=== PATIENT | male | born 1955 | race Caucasian/White ===

== ENCOUNTER 2021-11-23 05:28 | Emergency (ER) | payer OTHER ==
[2021-11-23] MEDS ORDERED: Diltiazem 125 MG/25 ML ONE (05:42)
[2021-11-23 06:21] LABS: #Basophils 0.1 10x3/uL (0.0-0.2); #Eosinphils 0.2 10x3/uL (0.0-0.5); #Monocytes 0.5 10x3/uL (0.0-1.1); #Neutrophils 10.8 10x3/uL (1.5-8.4); %Basophils 0.6 % (0.0-2.0); %Eosinophils 1.4 % (0.0-6.0); %Lymphocytes 6.9 % (18.0-47.0); %Monocytes 3.9 % (0.0-10.0); %Neutrophils 86.8 % (40.0-75.0); Hemoglobin 14.1 g/dL (13.5-17.5); Mean Corpuscular HGB CONC 32.9 g/dL (32.0-36.0); Mean Corpuscular Hemoglobin 28.8 pg (27.0-33.0); Mean Corpuscular Volume 87.7 fl (81.2-95.1); Mean Platelet Volume 11.3 fl (7.4-10.4); Platelet Count 181 10x3/uL (150-450); RBC Distribution Width 14.6 % (11.5-14.5); Red Blood Cell (RBC) Count 4.89 10x6/uL (4.32-5.72); White Blood Cell (WBC) Count 12.4 10x3/uL (3.5-10.5)
[2021-11-23 06:32] LABS: SARS-CoV-2 NAA Rapid Test Not Detected (NotDetected)
[2021-11-23 06:36] LABS: INR-International Normal Ratio 2.3; PTT 33.2 sec (22.0-33.0); Prothrombin Time 23.4 sec (9.5-12.1)
[2021-11-23 06:51] LABS: ALT (SGPT) 28 U/L (8-55); AST (SGOT) 24 U/L (5-34); Albumin 4.2 g/dL (3.4-4.8); Alkaline Phosphatase 110 U/L (40-110); Anion Gap 15 mmol/L (10-20); BUN (Urea Nitrogen) 16 mg/dL (8.4-25.7); Bilirubin, Total 1.4 mg/dL (0.2-1.2); Calc. Creatinine Clearance 0 mL/min (70-130); Carbon Dioxide 23 mmol/L (23-31); Chloride 107 mmol/L (98-107); Estimated GFR 96; Globulin 2.8 g/dL (2.4-3.5); Glucose 134 mg/dL (80-115); Potassium 4.2 mmol/L (3.5-5.1); Sodium 141 mmol/L (136-145)
== END 2021-11-23 18:03 | disposition short-term general hospital (02) ==
LOC: CSHERS 05:28 → EEVIPCON 05:28 → CSHERS 18:03
DX: I48.91 Unspecified atrial fibrillation (principal); Z20.822 Contact with and (suspected) exposure to COVID-19; I10 Essential (primary) hypertension; Z79.899 Other long term (current) drug therapy
CPT/HCPCS: 36415; 71045; 80053; 83880; 84484; 85025; 85610; 85730; 93005; 96374; U0002